=== PATIENT | male | born 1955 | race Caucasian/White ===

== ENCOUNTER 2020-10-19 12:16 | Outpatient (REF) | payer OTHER, SELFPAY | END 2020-10-19 12:17 | disposition home or self-care (01) | LOC: HO.LAB 12:16 | PROVIDERS: Visit Provider Internal Medicine | DX: Z20.822 Contact with and (suspected) exposure to COVID-19 (principal) | CPT/HCPCS: 36415; C9803; U0003; U0005 ==

== ENCOUNTER 2020-11-01 10:05 | Outpatient (REF) | payer OTHER, SELFPAY | END 2020-11-01 10:06 | disposition home or self-care (01) | LOC: HO.LAB 10:05 | PROVIDERS: Visit Provider Internal Medicine | DX: Z20.822 Contact with and (suspected) exposure to COVID-19 (principal) | CPT/HCPCS: 36415; C9803; U0003; U0005 ==

== ENCOUNTER 2022-06-10 11:10 | Outpatient (REF) | payer MEDICARE, SELFPAY ==
--- NOTE | ~2022-06-10 | XR_ITS ---
EXAMINATION: XR lumbar spine 4V min CLINICAL INFORMATION: Reason for Exam LOW BACK PAIN COMPARISON: None TECHNIQUE: 5 views of the lumbar spine FINDINGS: 5 nonrib-bearing lumbar-type vertebral bodies. Vertebral body heights are maintained. Alignment is maintained. No pars defects. Mild to moderate multilevel degenerative disc disease worst at L4-L5 with loss of disc space height and facet arthropathy. Paravertebral soft tissues are unremarkable. XR/XR lumbar spine 4V min IMPRESSION: * Mild to moderate spondylosis of the lumbar spine, as above detailed.
== END 2022-06-10 11:11 | disposition home or self-care (01) ==
LOC: HO.XRAY 11:10
PROVIDERS: Visit Provider Emergency Medicine
DX: M54.50 Low back pain, unspecified (principal)
CPT/HCPCS: 72110